=== PATIENT | female | born 1950 | race Caucasian/White ===

== ENCOUNTER 2019-03-07 10:10 | Emergency (ER) | payer MEDICARE, BC ==
[2019-03-07 10:48] VITALS: BP 145/96
--- NOTE | 2019-03-07 11:08 | UC ---
Knee Pain HPI - HPI Summary HPI Summary: 68-year-old female who awakened this morning complaining of right knee pain stating she was unable to bear weight without pain. She has had no known injury. She is worried this may be arthritis. Right knee x-ray:FINDINGS: BONE DENSITY: There is diffuse osteopenia. BONES: There is no displaced fracture. JOINTS: There is moderate tricompartmental osteoarthritis. There is no suprapatellar joint effusion or lipohemarthrosis. ALIGNMENT: There is no dislocation. SOFT TISSUES: Unremarkable. OTHER FINDINGS: None. IMPRESSION: OSTEOPENIA. OSTEOARTHRITIS. NO ACUTE OSSEOUS INJURY. IF SYMPTOMS PERSIST, RECOMMEND REPEAT IMAGING. The patient stated she does have a history of arthritis in her knees. She is to apply warm moist compresses and follow-up with the orthopedist if continued pain. She does have a bus trip planned this Monday to go to [place] however I advised that she not take the trip because she will continue to have pain and possibly worsening with all of the walking that is entailed in that particular trip. - History of Current Complaint Chief Complaint: UCLowerExtremity Stated Complaint: RT KNEE COMPLAINT Time Seen by Provider: 03/07/19 10:42 Hx Obtained From: Patient ?: No Onset/Duration: Sudden Onset Severity Initially: Mild Severity Currently: Mild Pain Intensity: 5 Character: Aching Aggravating Factor(s): Weight Bearing Alleviating Factor(s): Rest Associated Signs And Symptoms: Positive: Negative Able to Bear Weight: Yes - minimally able to bear weight. - Allergies/Home Medications Allergies/Adverse Reactions: Allergies Allergy/AdvReac Type Severity Reaction Status Date / Time No Known Allergies Allergy Verified 03/07/19 10:38 Home Medications: Home Medications Acetaminophen [Pain Relief] 1,000 mg PO Q8H PRN 03/07/19 [History Confirmed ] Menthol [Biofreeze] 1 applic TOPICAL Q8H PRN 03/07/19 [History Confirmed ] PMH/Surg Hx/FS Hx/Imm Hx Previously Healthy: Yes Cardiovascular History: Hypertension GI/ History: Gastroesophageal Reflux - Surgical History Surgical History: Yes Surgery Procedure, Year, and Place: Hysterectomy, 1993, [place]. Bladder Surgery , 2002, [place]. Cataract Implant - Family History Known Family History: Positive: Non-Contributory - Social History Occupation: Retired Alcohol Use: Occasionally Substance Use Type: None Smoking Status (MU): Never Smoked Tobacco Review of Systems All Other Systems Reviewed And Are Negative: Yes Musculoskeletal: Positive: Other: - Pain right knee. The patient states her right knee is normally swollen and has been that way for approximately 1 year Neurological: Positive: Paresthesia - Patient normally has paresthesia below the knees bilaterally. Is Patient Immunocompromised?: No Physical Exam Triage Information Reviewed: Yes Appearance: Well-Appearing, No Pain Distress, Well-Nourished Vital Signs: Initial Vital Signs Temp 98.7 F 03/07/19 10:43 Pulse 78 03/07/19 10:43 Resp 20 03/07/19 10:43 BP 145/96 03/07/19 10:43 Pulse Ox 95 03/07/19 10:43 Vital Signs Reviewed: Yes Musculoskeletal: Positive: Strength Intact, ROM Intact, Other: - Good peripheral pulses neuro sensation and capillary refill. She is able to feel me touching her below the knee however minimally which is her norm for the past year. Right knee is larger than the left knee however there is no swelling due to fluid, no erythema, no deformity. There is no specific point tenderness. She is able to lift her leg up from the wheelchair without difficulty. No calf pain. Neurological: Positive: Alert, Muscle Tone Normal Psychological Exam: Normal Skin Exam: Normal Knee Pain Course/Dx - Course Course Of Treatment: Right knee x-ray:FINDINGS: BONE DENSITY: There is diffuse osteopenia. BONES: There is no displaced fracture. JOINTS: There is moderate tricompartmental osteoarthritis. There is no suprapatellar joint effusion or lipohemarthrosis. ALIGNMENT: There is no dislocation. SOFT TISSUES: Unremarkable. OTHER FINDINGS: None. IMPRESSION: OSTEOPENIA. OSTEOARTHRITIS. NO ACUTE OSSEOUS INJURY. IF SYMPTOMS PERSIST, RECOMMEND REPEAT IMAGING. - Differential Dx/Diagnosis Provider Diagnosis: Knee pain Discharge - Sign-Out/Discharge Documenting (check all that apply): Patient Departure All imaging exams completed and their final reports reviewed: Yes - Discharge Plan Condition: Fair Disposition: HOME Patient Education Materials: Arthritis (ED) Referrals: Wendi Wolfe MD [Primary Care Provider] - Yamile Ball MD [Medical Doctor] - Additional Instructions: Apply heat to the sore area 4-6 times a day. May take Tylenol for pain as directed. Definite follow-up with the orthopedist if no improvement in 3 or 4 days. May ambulate as pain permits. - Billing Disposition and Condition Condition: FAIR Disposition: Home
== END 2019-03-07 11:53 | disposition home or self-care (01) ==
LOC: UCCORT 10:10
DX: M17.11 Unilateral primary osteoarthritis, right knee (principal); M85.88 Other specified disorders of bone density and structure, other site; I10 Essential (primary) hypertension
CPT/HCPCS: 99201; G0463